=== PATIENT | female | born 1940 | race Caucasian/White ===

== ENCOUNTER → 2020-12-27 | Outpatient (CLI) | payer SELFPAY ==
[~2020-12-27] MED LIST: DOXY100 PO; Prednisone20 MG PO
[2020-12-27 18:49] LABS: BASOPHILS ABSOLUTE AUTO 0.04 K/mm3 (0.00-0.23); BASOPHILS PERCENT AUTO 1 % (0-2); EOSINOPHILS ABSOLUTE AUTO 0.24 K/mm3 (0.00-0.68); EOSINOPHILS PERCENT AUTO 3 % (0-6); Hematocrit 33.1 % (33.0-51.0); IMMATURE GRAN ABSOLUTE AUTO 0.08 K/mm3 (0.00-0.10); IMMATURE GRAN PERCENT AUTO 1 % (0-1); LYMPHOCYTES ABSOLUTE AUTO 1.11 K/mm3 (0.84-5.20); LYMPHOCYTES PERCENT AUTO 14 % (21-46); MONOCYTES PERCENT AUTO 4 % (4-13); Mean Corpuscular HGB 27.5 pg (26.0-34.0); Mean Corpuscular HGB Conc 30.2 g/dL (31.5-36.5); Mean Corpuscular Volume 91 fL (80-100); NEUTROPHILS ABSOLUTE AUTO 6.31 K/mm3 (1.96-9.15); NEUTROPHILS PERCENT AUTO 78 % (41-73); Platelet Count 494 K/mm3 (150-400); RDW Coefficient Variation 16.4 % (11.7-14.2); RDW Standard Deviation 54.6 fL (35.1-46.3); Red Blood Cell Count 3.63 M/mm3 (3.80-5.20); White Blood Cell Count 8.08 K/mm3 (4.00-11.30)
[2020-12-27 19:23] LABS: Very Low Density Lipoprot Chol 27 mg/dL (6-32)
[2020-12-27 19:27] LABS: Alanine Aminotransfer (ALT/SGP 11 U/L (12-78); Albumin, Blood 2.2 g/dL (3.4-5.0); Albumin/Globulin Ratio 0.4 (0.8-1.8); Alk Phos 102 U/L (50-136); Anion Gap 1 mmol/L (6-16); Aspartate Aminotrans (AST/SGOT 16 U/L (12-37); Bilirubin, Total 0.2 mg/dL (0.1-1.0); Blood Urea Nitrogen 17 mg/dL (8-24); Bun/Creatinine Ratio 36.7 (12.0-20.0); CHOL/HDL RATIO 3.5; CO2, Blood 35 mmol/L (21-32); Calcium, Blood 8.8 mg/dL (8.5-10.1); Chloride, Blood 101 mmol/L (98-108); Cholesterol 173 mg/dL (50-200); Creatinine, Blood 0.46 mg/dL (0.40-1.00); Glomerular Filtration Rate >60 (60-); Glucose, Blood 88 mg/dL (70-99); HDL Cholesterol 49 mg/dL (>39); Low Density Lipoprotein Chol 97 mg/dL (0-110); Sodium, Blood 137 mmol/L (136-145); Total Protein, Blood 7.2 g/dL (6.4-8.2); Triglycerides 135 mg/dL (30-160)
== END | disposition home or self-care (01) ==
LOC: LAB SHORT 17:20
PROVIDERS: Family Medicine
DX: J44.9 Chronic obstructive pulmonary disease, unspecified (principal); I11.0 Hypertensive heart disease with heart failure; I50.9 Heart failure, unspecified; M06.9 Rheumatoid arthritis, unspecified; K21.9 Gastro-esophageal reflux disease without esophagitis; Z85.71 Personal history of Hodgkin lymphoma; Z85.3 Personal history of malignant neoplasm of breast
CPT/HCPCS: 80053; 80061; 84443; 85025; 86140; 86431

== ENCOUNTER 2020-12-28 14:55 | Emergency (ER) | payer MEDICARE, OTHER ==
[~2020-12-28] VITALS: Ht 162.6 cm; Wt 79.4 kg
[2020-12-28 15:36] LABS: BASOPHILS ABSOLUTE AUTO 0.03 K/mm3 (0.00-0.23); BASOPHILS PERCENT AUTO 0 % (0-2); EOSINOPHILS ABSOLUTE AUTO 0.13 K/mm3 (0.00-0.68); EOSINOPHILS PERCENT AUTO 2 % (0-6); Hematocrit 37.6 % (33.0-51.0); Hemoglobin 11.2 g/dL (11.5-16.0); IMMATURE GRAN ABSOLUTE AUTO 0.07 K/mm3 (0.00-0.10); IMMATURE GRAN PERCENT AUTO 1 % (0-1); LYMPHOCYTES ABSOLUTE AUTO 0.98 K/mm3 (0.84-5.20); LYMPHOCYTES PERCENT AUTO 13 % (21-46); MONOCYTES ABSOLUTE AUTO 0.21 K/mm3 (0.16-1.47); MONOCYTES PERCENT AUTO 3 % (4-13); Mean Corpuscular HGB 27.1 pg (26.0-34.0); Mean Corpuscular HGB Conc 29.8 g/dL (31.5-36.5); Mean Corpuscular Volume 91 fL (80-100); Mean Platelet Volume 9.7 fL (9.1-12.4); NEUTROPHILS ABSOLUTE AUTO 5.98 K/mm3 (1.96-9.15); NEUTROPHILS PERCENT AUTO 81 % (41-73); Platelet Count 517 K/mm3 (150-400); RDW Coefficient Variation 16.6 % (11.7-14.2); RDW Standard Deviation 55.1 fL (35.1-46.3); Red Blood Cell Count 4.14 M/mm3 (3.80-5.20)
[2020-12-28 15:46] LABS: Alanine Aminotransfer (ALT/SGP 14 U/L (12-78); Albumin, Blood 2.3 g/dL (3.4-5.0); Albumin/Globulin Ratio 0.4 (0.8-1.8); Alk Phos 110 U/L (50-136); Anion Gap 2 mmol/L (6-16); Aspartate Aminotrans (AST/SGOT 19 U/L (12-37); Bilirubin, Total 0.4 mg/dL (0.1-1.0); Blood Urea Nitrogen 15 mg/dL (8-24); Bun/Creatinine Ratio 35.5 (12.0-20.0); CO2, Blood 37 mmol/L (21-32); Calcium, Blood 9.3 mg/dL (8.5-10.1); Chloride, Blood 98 mmol/L (98-108); Creatinine, Blood 0.42 mg/dL (0.40-1.00); Globulin, Blood 5.6 g/dL (2.2-4.0); Glomerular Filtration Rate >60 (60-); Glucose, Blood 107 mg/dL (70-99); Sodium, Blood 137 mmol/L (136-145); Total Protein, Blood 7.9 g/dL (6.4-8.2)
[2020-12-28 18:17] LABS: SARS-Cov-2 (COVID-19) PCR, MMC NEGATIVE (NEGATIVE)
[2020-12-28] MEDS ORDERED: DOXY100 PO (19:53)
[2020-12-28] MEDS ORDERED: Prednisone20 MG PO (19:53)
== END 2020-12-28 21:07 | disposition home or self-care (01) ==
LOC: ER 14:55
PROVIDERS: Emergency Medicine
DX: J18.9 Pneumonia, unspecified organism (principal); Z20.822 Contact with and (suspected) exposure to COVID-19; J44.9 Chronic obstructive pulmonary disease, unspecified; I50.9 Heart failure, unspecified; Z88.2 Allergy status to sulfonamides; Z87.891 Personal history of nicotine dependence
CPT/HCPCS: 36415; 71045; 80053; 83880; 84145; 84484; 85025; 93005; 93010; 99285-25; A9270; J7512; U0004

== ENCOUNTER 2021-01-13 16:16 | Inpatient (IN) | payer MEDICARE, OTHER ==
[~2021-01-13] VITALS: Ht 165.1 cm; Wt 75.1 kg
[2021-01-13 17:08] LABS: BASOPHILS PERCENT AUTO 1 % (0-2); EOSINOPHILS ABSOLUTE AUTO 0.17 K/mm3 (0.00-0.68); EOSINOPHILS PERCENT AUTO 2 % (0-6); Hematocrit 41.1 % (33.0-51.0); Hemoglobin 12.2 g/dL (11.5-16.0); IMMATURE GRAN ABSOLUTE AUTO 0.09 K/mm3 (0.00-0.10); IMMATURE GRAN PERCENT AUTO 1 % (0-1); LYMPHOCYTES ABSOLUTE AUTO 2.18 K/mm3 (0.84-5.20); LYMPHOCYTES PERCENT AUTO 19 % (21-46); MONOCYTES ABSOLUTE AUTO 0.48 K/mm3 (0.16-1.47); MONOCYTES PERCENT AUTO 4 % (4-13); Mean Corpuscular HGB 27.4 pg (26.0-34.0); Mean Corpuscular HGB Conc 29.7 g/dL (31.5-36.5); Mean Corpuscular Volume 92 fL (80-100); Mean Platelet Volume 11.1 fL (9.1-12.4); NEUTROPHILS ABSOLUTE AUTO 8.39 K/mm3 (1.96-9.15); NEUTROPHILS PERCENT AUTO 74 % (41-73); Platelet Count 490 K/mm3 (150-400); RDW Coefficient Variation 17.3 % (11.7-14.2); RDW Standard Deviation 58.5 fL (35.1-46.3); Red Blood Cell Count 4.46 M/mm3 (3.80-5.20); White Blood Cell Count 11.41 K/mm3 (4.00-11.30)
[2021-01-13 17:21] LABS: Alanine Aminotransfer (ALT/SGP 18 U/L (12-78); Albumin, Blood 2.8 g/dL (3.4-5.0); Albumin/Globulin Ratio 0.5 (0.8-1.8); Alk Phos 94 U/L (50-136); Anion Gap 4 mmol/L (6-16); Aspartate Aminotrans (AST/SGOT 21 U/L (12-37); Bilirubin, Total 0.3 mg/dL (0.1-1.0); Blood Urea Nitrogen 14 mg/dL (8-24); Bun/Creatinine Ratio 29.4 (12.0-20.0); CO2, Blood 35 mmol/L (21-32); Calcium, Blood 9.3 mg/dL (8.5-10.1); Chloride, Blood 94 mmol/L (98-108); Creatinine, Blood 0.48 mg/dL (0.40-1.00); Globulin, Blood 5.1 g/dL (2.2-4.0); Glomerular Filtration Rate >60 (60-); Glucose, Blood 202 mg/dL (70-99); Potassium, Blood 4.2 mmol/L (3.5-5.5); Sodium, Blood 133 mmol/L (136-145); Total Protein, Blood 7.9 g/dL (6.4-8.2); Troponin I <0.015 ng/mL (0.000-0.040)
[2021-01-13 18:08] LABS: International Normalized Ratio 1.06; Prothrombin Time Results 11.1 Sec (9.7-11.5)
[2021-01-13] MEDS ORDERED: ELIQUIS5 M2 PO (19:24)
[2021-01-13] MEDS ORDERED: FLUT1DIS5 INH (19:25)
[2021-01-13] MEDS ORDERED: LOSA25 PO (19:26)
[2021-01-13] MEDS ORDERED: FURO20 PO (19:26)
[2021-01-13] MEDS ORDERED: DILT60 PO (19:26)
[2021-01-13] MEDS ORDERED: QUET25 PO (19:27)
[2021-01-13] MEDS ORDERED: GABA300 PO (19:27)
[2021-01-13] MEDS ORDERED: MOTRIN IB200 MG PO (19:28)
[2021-01-13] MEDS ORDERED: IPRAT-ALBUT 0.5-3 ML INH (19:28)
[2021-01-13 23:29] LABS: Source, Urine Catheter
[2021-01-13 23:31] LABS: Bilirubin, Urine Neg (Neg); Blood, Urine 4+ (Neg); Glucose Qualitative, Urine Neg (Neg); Ketones, Urine Neg (Neg); Leukocyte Esterase, Urine 2+ (Neg); Nitrite, Urine Neg (Neg); Protein, Urine 1+ (Neg); Urobilinogen, Urine NORM (Normal)
[2021-01-13 23:42] LABS: Appearance, Urine Clear (Clear); Bacteria Few /hpf; Color, Urine Yellow (P-Yellow); Squamous Epithelial Cells Not Seen /hpf (Few); White Blood Cells, Urine 25-50 /hpf (0-5)
--- NOTE | 2021-01-14 00:29 | NUR ---
CALL TO HOSP RE: PT C/O PAIN RELATED TO ARTHRITIS, IS CURRENTLY NPO WAITING FOR SPEECH EVAL DUE TO FAMILY CONCERNS REGARDING POSSIBLE ASPIRATION. ORDERS REC.Brant AYALA RN
[2021-01-14 00:56] LABS: Troponin I 0.027 ng/mL (0.000-0.040)
--- NOTE | 2021-01-14 08:06 | NUR ---
CARE ASSUMPTION THIS RN ASSUMED CARE AT 0700. VSS. TELE AFIB 98. SPO2 >90% ON 4L NC. PATIENT IS ALERT TO SELF. PATIENT IS CONFUSED AND CALLS OUT "HELP ME" WHEN GOING IN TO ASSIST PATIENT PATIENT STATES "I NEED TO GET BACK TO BED" THIS RN INFORMS PATIENT THAT SHE IS IN BED AND ASKS HOW I CAN MAKE HER MORE COMFORTABLE, AND ORIENTATES HER TO THE ROOM AND WHERE SHE IS AT. PATIENT DAUGHTER IS AT BEDSIDE WHO IS POA, AND IS HER CAREGIVER. MD IN TO SEE PATIENT THIS MORNING AND ORDERED A FULL LIQUID DIET UNTIL SPEECH CAN SEE PATIENT. PER DAUGHTER THIS IS THE PATIENTS BASELINE. PATIENT HAS ROSALES IN PLACE DRAINING WITH GRAVITY. PATIENT IS INCONTINENT. PATIENT HAD A PRESSSURE ULCER TO HER RIGHT HEEL, PICTURES IN THE CHART. CALL LIGHT WITHIN REACH, BED IN LOWEST POSITION AND DAUGHTER AT BEDSIDE. WILL CONTINUE TO MONITOR AND PROVIDE CARE.
[2021-01-14 08:53] LABS: BASOPHILS ABSOLUTE AUTO 0.07 K/mm3 (0.00-0.23); BASOPHILS PERCENT AUTO 1 % (0-2); EOSINOPHILS ABSOLUTE AUTO 0.08 K/mm3 (0.00-0.68); EOSINOPHILS PERCENT AUTO 1 % (0-6); Hematocrit 35.4 % (33.0-51.0); Hemoglobin 10.6 g/dL (11.5-16.0); IMMATURE GRAN ABSOLUTE AUTO 0.05 K/mm3 (0.00-0.10); IMMATURE GRAN PERCENT AUTO 1 % (0-1); LYMPHOCYTES ABSOLUTE AUTO 0.45 K/mm3 (0.84-5.20); LYMPHOCYTES PERCENT AUTO 6 % (21-46); MONOCYTES ABSOLUTE AUTO 0.32 K/mm3 (0.16-1.47); MONOCYTES PERCENT AUTO 4 % (4-13); Mean Corpuscular HGB 27.2 pg (26.0-34.0); Mean Corpuscular HGB Conc 29.9 g/dL (31.5-36.5); Mean Corpuscular Volume 91 fL (80-100); Mean Platelet Volume 10.3 fL (9.1-12.4); NEUTROPHILS ABSOLUTE AUTO 6.55 K/mm3 (1.96-9.15); NEUTROPHILS PERCENT AUTO 87 % (41-73); Platelet Count 371 K/mm3 (150-400); RDW Coefficient Variation 17.4 % (11.7-14.2); RDW Standard Deviation 58.4 fL (35.1-46.3); Red Blood Cell Count 3.89 M/mm3 (3.80-5.20); White Blood Cell Count 7.52 K/mm3 (4.00-11.30)
[2021-01-14 09:10] LABS: Alanine Aminotransfer (ALT/SGP 12 U/L (12-78); Albumin, Blood 2.4 g/dL (3.4-5.0); Albumin/Globulin Ratio 0.5 (0.8-1.8); Alk Phos 78 U/L (50-136); Anion Gap 5 mmol/L (6-16); Aspartate Aminotrans (AST/SGOT 21 U/L (12-37); Bilirubin, Total 0.3 mg/dL (0.1-1.0); Blood Urea Nitrogen 15 mg/dL (8-24); CO2, Blood 38 mmol/L (21-32); CPK Creatine Kinase 37 U/L (26-193); Calcium, Blood 8.7 mg/dL (8.5-10.1); Chloride, Blood 95 mmol/L (98-108); Creatinine, Blood 0.42 mg/dL (0.40-1.00); Globulin, Blood 4.5 g/dL (2.2-4.0); Glomerular Filtration Rate >60 (60-); Glucose, Blood 82 mg/dL (70-99); Potassium, Blood 3.4 mmol/L (3.5-5.5); Sodium, Blood 138 mmol/L (136-145); Total Protein, Blood 6.9 g/dL (6.4-8.2); Troponin I <0.015 ng/mL (0.000-0.040)
--- NOTE | 2021-01-14 17:55 | NUR ---
SHIFT SUMMARY PATIENT IS ALERT TO SELF. VSS. SPO2 >90% ON 4L NC. TELE AFIB WITH PVC. PATIENT DAUGHTER IN LAW IS CURRENTLY AT BEDSIDE. DAUGHTER IN LAW LEFT DURING THE AFTERNOON AND PATIENT WOULD CALL OUT FREQUENTLY FOR HELP, FOR THE DAUGHTER IN LAW. PATIENT BECOMES ANXIOUS AT TIMES, BUT WITH REDIRECTION AND ORIENTATION TO WHAT IS GOING ON AND ASKING HER TO TAKE SOME DEEP BREATHS SHE CALMS DOWN. DAUGHTER IN LAW HELPS PROVIDE RELIEVE HER ANXIETY. PATIENT STATES SHE IS AFRAID TO BE ALONE AND MISSES HER DAUGHTER IN LAW WHEN SHE WASN'T HERE. PATIENT NEEDS FREQUENT REMINDING AND ORIENTATING. BED IN LOWEST POSITION AND CALL LIGHT WITHIN REACH. NO ACUTE CHANGES DURING THIS SHIFT. WILL CONTINUE TO MONITOR AND PROVIDE CARE UNTIL HAND OFF WITH NEXT SHIFT.
--- NOTE | 2021-01-14 21:51 | NUR ---
PT CONTINUES TO BE AGITATED, SCREAMING FOR HELP BECAUSE SHE WANTS SOMEONE IN THE ROOM WITH HER AT ALL TIMES. PT SO AGITATED HR UP TO 130'S, HAD 4 BEATS OF VTACH ( MADE AWARE VIA PHONE). CALL PLACED TO NGHIA MASTERSON, WHO STATES SHE WILL COME BACK AND SIT WITH PATIENT. METOPROLOL IV FOR ELEVATED HR, SEE MAR. LUCY RN
--- NOTE | 2021-01-14 22:44 | NUR ---
PT REMAINS AGITATED, DIL AT BEDSIDE AND UNABLE TO PACIFY PT. CALL TO HOSP, ORDERS REC'D, WILL CONTINUE TO MONITOR. TOMA AYALA
--- NOTE | 2021-01-14 23:20 | NUR ---
PT REMAINS AGITATED WITH ELEVATED BP AND HR, DIAPHORETIC FROM RESTLESSNESS IN BED. DIL AT BEDSIDE ASKED "CANT YOU GIVE HER SOMETHING TO KNOCK HER OUT?" EDUCATED FAMILY REGARDING CHEMICAL RESTRAINTS, REPEAT CALL TO PRACTITIONER TO UPDATE HER ON PT CONDITION. ORDERS REC'D. TOMA AYALA
[2021-01-15 05:02] LABS: Anion Gap 0 mmol/L (6-16); Blood Urea Nitrogen 22 mg/dL (8-24); CO2, Blood 41 mmol/L (21-32); Calcium, Blood 9.3 mg/dL (8.5-10.1); Chloride, Blood 94 mmol/L (98-108); Creatinine, Blood 0.43 mg/dL (0.40-1.00); Free Thyroxine 0.89 ng/dL (0.70-1.60); Glomerular Filtration Rate >60 (60-); Glucose, Blood 173 mg/dL (70-99); Potassium, Blood 4.4 mmol/L (3.5-5.5); Sodium, Blood 135 mmol/L (136-145); Thyroid Stimulating Hormone 0.584 uIU/mL (0.360-4.800)
--- NOTE | 2021-01-15 08:00 | NUR ---
ASSUMED CARE OF PATIENT. PT IS RESTING WITH EYES CLOSED, DAUGHTER IN LAW AT BEDSIDE. WILL CONTINUE TO YUN.
--- NOTE | 2021-01-15 09:00 | NUR ---
INITIAL ASSESSMENT: Assumed care of patient, she is resting with her eyes closed, awakens with repositioning. no pain per FlACC scale. HR Irregular, A-fib in the 110-115. LS Coarse on the right, DIM on the left. Biox wnl on baseline 3l oxygen via NC. BT+. Chou cath patent and draining dark yellow urine, urine cultures came back positive-MD aware. PPP. VSS. Patient is too lethargic this am to take PO pills and participate with ST. Bed alarm on for safety. Will continue to monitor.
--- NOTE | 2021-01-15 12:00 | NUR ---
UPDATE: Patient is able to wake up for bed bath and repositioning. Oral care done, pt does not have gag or cough. RT called for NT suctioning, sputum sample sent. MD updated, see new orders.
--- NOTE | 2021-01-15 15:01 | NUR ---
Received call from Primary RN Jennifer and discussed case. Pt more somnolant today, appears weak and frail. Pt resting in bed with her eyes closed. Respirations increased. Pt opens her eyes to loud verbal stimuli but does not respond verbally and quickly appears to go back to sleep. Called and spoke with Pt's son Ramesh and daughter in law Nati. Provided update and therapeutic listening. Ramesh reports family would like to consider hospice in order to manage Pt's pain. Nati reports Pt's RA is significant and struggles with pain control. Educated on hospice philosophy with V/U made by family. Family requests to have Pt evaluated for hospice appropirateness. Palliative Care will F/U with therapeutic visits and assess hospice appropriateness.
--- NOTE | 2021-01-15 15:08 | NUR ---
Late Entry from previous visit note. Family reports Pt is chair bound requiring assistance with transfers. Pt needs assistance with dressing and requires 2 person assistance with bathing. Pt's appetite is poor eating a spoonful of pudding or apples sauce. Pt is incontenent of bowel and bladder and is constantly confused.
--- NOTE | 2021-01-15 16:30 | NUR ---
Update: Patient had chest X-Ray done earlier, results called to Dr. Pavon. Patient is also positive for UTI, see new orders. Patient is more awake, oriented to self, place and daughter in law. Blood pressure high, pt was able to take coreg with a bite of applesauce.
--- NOTE | 2021-01-15 19:25 | NUR ---
Patient started off the shift lethargic, per the noc shift RN pt had not slept in approx 3 nights. Pt was responsive to repositioning and neuro status improved toward the end of the shift. UA positive, abx ordered.CXR shows worsening pneumonia, abx ordered. Daughter in law at the bedside. No other changes this shift, report given to Katey REYES RN.
--- NOTE | 2021-01-15 21:55 | NUR ---
PATIENT BECAME MORE ANXIOUS AND BEGAN DESATTING INTO MID 80'S. ZYPREXA (PO) GIVEN AND UPON RECHECK THE PATIENT WAS ABLE TO SLEEP.
--- NOTE | 2021-01-15 22:28 | NUR ---
ASSUMED CARE OF PT AT 1900. DAUGHTER IN LAW (RICKI) AT BEDSIDE. TO SELF AND RICKI'S RELATIONSHIP TO HER (NOT HER NAME). PATIENT WAS CALMLY LYING IN BED. PT C/O LOW BACK PAIN THAT IS CHRONIC IN NATURE. L PUPIL 3 AND BRISK, R PUPIL 3 BUT VERY SLUGGISH. HAND GRASPS EQUAL BL. MAINTAINING ABOVE 92% ON 3.5L NC (HOME BASELINE OXYGEN) BUT DOES DESAT INTO THE 80'S WITH INCREASE IN ANXIETY WHICH REQUIRES INCREASED O2 UNTIL PATIENT IS CALM AGAIN. DIM UPPER, COARSE LOWER. MOIST/CONGESTED COUGH. AFIB AVG LOW 100'S WITH +1 PULSES BL RADIAL AND PEDAL. UPPER EXTREMITIES TRACE EDEMA, LOWER 2+. ROSALES DRAINING TO GRAVITY (YELLOW URINE).
[2021-01-16 03:48] LABS: Hematocrit 35.6 % (33.0-51.0); Hemoglobin 10.2 g/dL (11.5-16.0); Mean Corpuscular HGB 27.7 pg (26.0-34.0); Mean Corpuscular HGB Conc 28.7 g/dL (31.5-36.5); Platelet Count 399 K/mm3 (150-400); RDW Coefficient Variation 17.7 % (11.7-14.2); Red Blood Cell Count 3.68 M/mm3 (3.80-5.20); White Blood Cell Count 8.47 K/mm3 (4.00-11.30)
[2021-01-16 03:57] LABS: Mean Corpuscular Volume 97 fL (80-100)
--- NOTE | 2021-01-16 04:20 | NUR ---
TELE INFORMED PATIENT HAD 12 BEAT RUN OF VT, THEN RETURNED TO AFIB.
[2021-01-16 04:40] LABS: Anion Gap Unable to Calculate mmol/L (6-16); Blood Urea Nitrogen 39 mg/dL (8-24); Bun/Creatinine Ratio 64.1 (12.0-20.0); CO2, Blood 43 mmol/L (21-32); Chloride, Blood 97 mmol/L (98-108); Creatinine, Blood 0.61 mg/dL (0.40-1.00); Glomerular Filtration Rate >60 (60-); Glucose, Blood 129 mg/dL (70-99); Potassium, Blood 4.1 mmol/L (3.5-5.5); Sodium, Blood 139 mmol/L (136-145)
--- NOTE | 2021-01-16 06:14 | NUR ---
PATIENT SLEPT MOST OF THE NIGHT. SMALL FORMED INCONTINENT BOWEL MOVEMENT. VSS. WILL REPORT TO DAYSHIFT RN.
--- NOTE | 2021-01-16 08:45 | NUR ---
INITIAL ASSESSMENT: Patient is lethargic this am, she is able to tell me her name and part of her date of . She denies pain. HR, Irreg a-fib in the low 100s. VSS. LS coarse with some exp. wheezing noted, biox wnl on 2L via NC. bt+, attends in place. Chou cath patent and draining clear yellow urine. PPP, BLE elevated on pillows. Pt has mepilex to heels. Two small skin tears noted to the top of left hand. Bed alarm on for safety, call light in reach.
--- NOTE | 2021-01-16 11:51 | NUR ---
Pt resting in bed upon arrival. Pt awake and more alert today. Pt is pleasantly confused and appears to mistake this RN for someone she knows. Pt appears excited to see this RN. Offered gentle voice and therapeutic touch. Spoke with Pt's Primary RN Jennifer and discussed case. Reviewed plan of care. Palliative Care will remain available.
--- NOTE | 2021-01-16 12:30 | NUR ---
Update: Patient is more awake and is asking for lunch. Speech therapy attempted to see the patient earlier this morning, but due to lethargy they could not evaluate her. I called Radha in speech therapy, she was able to come and see the patient-she has been upgraded to a puree diet with thins and meds whole in applesauce. Patient was able to eat quite a bit, am meds were given with applesauce. Son at bedside. Will continue to andrew.
--- NOTE | 2021-01-16 18:10 | NUR ---
SUMMARY: PATIENT HAS BEEN MORE AWAKE AND ALERT TODAY. SHE WAS ABLE TO PASS HER SWALLOW EVAL, HER DIET WAS ADVANCED TO PUREE WITH THIN LIQUIDS. SHE WAS ABLE TO TAKE HER MEDS WHOLE WITH APPLESAUCE. VSS. NO ACUTE CHANGES THIS SHIFT. WILL REPORT TO ONCOMING RN.
--- NOTE | 2021-01-17 06:41 | NUR ---
SHIFT SUMMARY PT ORIENTED TO SELF AND FAMILY. MOANS OUT FOR HELP. BELIEVES PEOPLE ARE IN ROOM TALKING TO HER WHEN SHE IS ALONE. REDIRECTABLE WHEN NURSE OR FAMILY PRESENT IN ROOM. ASLEEP MOST OF NIGHT. ON 6L NC MAINTAINING SATS OVER 92%. APPLE SAUCE WITH MEDS. Q2 TURNS AND FREQUENT ORAL CARE. ROSALES IN PLACE DRAINING YELLOW URINE TO GRAVITY. IN BED SLEEPING WITH CALL ALARM AT SIDE
--- NOTE | 2021-01-17 13:59 | NUR ---
Reviewed chart and discussed case with Dr Pavon. Plan for Pt to remain in the hospital for a couple more days. Dr Pavon is agreeable for hospice referral upon D/C home. Called Pt's daughter in law Nati. Provided update and reviewed plan of care. Answered questions and listened to concerns. Nati reports family would still like to have hospice services for Pt upon D/C. Nati reports suspicion for breast cancer and inquires about having breast biopsy during her hospital stay. She reports family has no plan to pursue treatment but for family's own peace of mind would like to know to determine how much time Pt has left in this world. Continued therapeutic listening. Discussed hospice agencies to choose from. Nati reports Pt receives home health services through [email or web address] and would like to continue with this agency. Relayed family's request to Dr Paovn. Spoke with [employer] Kadi and relayed family's choice for hospice agencies upon D/C from hospital. Palliative Care will remain available.
--- NOTE | 2021-01-17 17:27 | NUR ---
RECIEVED REPORT FROM GUEVARA RN, CLAIM TAKER. PATIENT TRANSFERED TO ROOM 352. PATIENT WAS SATURATED WITH URINE ON ARRIVAL, ALTHOUGH HAD A ROSALES CATHETER. I CHANGED OUT THE PATIENTS CATHETER AND PLACED A LARGER ONE. ALSO NOTED PG TO [employer] WAS DIRTY AND NEEDING TO HAVE IT'S DRESSING CHANGED PER FRIDAY PROTOCOL. PATIENT IS SITUATED IN ROOM AT THIS TIME. CALL LIGHT WITHIN REACH.
--- NOTE | 2021-01-17 21:45 | NUR ---
ASSUMED CARE. HAVE BEEN IN THE ROOM SEVERAL TIMES IN ATTEMPT TO GET THE PATIENT AWAKE ENOUGH TO TAKE HER NIGHT MEDS. SHE HAD ZYPREXA EARLIER AND THIS CAUSED SOME SEDATION. SHE OPENS HER EYES TO VEREBAL STIMULI BUT WILL NOT MOVE HER ARMS OR FEET. WAS UNABLE TO GIVE PM MEDS AT THIS TIME. LUNG SOUNDS ARE DIMINISHED FAR I CAN HEAR WITH HER SHALLOW BREATHING. BED ALARM IS ON, WILL CONTINUE TO MONITOR.
--- NOTE | 2021-01-18 05:47 | NUR ---
SHIFT SUMMARY: STEVEN WAS SLEEPING THE START OF THE SHIFT DUE TO BEING GIVEN ZYPREXA. SHE WOULD OPEN HER EYES BUT WOULD NOT REPOND VERBALLY OR PHYSICALLY. NO PM MEDS WERE GIVEN. ONCE AWAKE SHE YELLED OUT FOR HELP CONSTANTLY AND TRYING TO WIGGLE OUT OF BED. ZYPREXA AGAIN WAS GIVEN. LARGE BM NOTED. ROSALES REMAINED PATENT AND DRAINING. CATH REMAINED PATENT AND DRAINING. HYPERTENSIVE RUNNING 140/100-160'S/100'S. AFEBRILE. TACHY IN TH LOW 100'S. IV RUNNING TKO. TELE RUNNINGG AFIB. ON 4LITERS OF O2 WHEN SHE WANTS TO KEEP IT ON. LS DIMINISHED. WILL CONTINUE TO MONITOR. CALL LIGHT IN REACH.
--- NOTE | 2021-01-18 17:25 | NUR ---
Shift Summary AO to self. When asked about place, situation, date/time, patient stated "I don't know" to all. C/O chronic back pain, confirmed with son that patient is often restless and c/o chronic back pain when at home. Pain relieved by tylenol and ibuprofen according to [id number] Nati. Tylenol given for pain of 3/10. Does not use call light appropriately, hollars out for help every 5-10 minutes. When staff enters room to help, patient unable to verbalize what she needs help with. PO fluids and snacks offered. Repositioned frequently. Chou intact and draining clear yellow urine. Appetite is good. Tele: Afib 100. WCTM.
--- NOTE | 2021-01-19 05:16 | NUR ---
SHIFT SUMMARY: IMPROVEMENT IN MENTATION TONIGHT, WAS ABLE TO GET HER NEEDS ACROSS MORE TONIGHT. CALLED OUT ONLY A FEW TIMES SHE DOES NOT REMEMBER TO USE CALL LIGHT. ONCE HER NEEDS WERE MET SHE WAS CALM AND WENT BACK TO SLEEP. DID GIVE ZYPREXA ONCE FOR MILD AGGITATION WHERE SHE FORGOT WHO I WAS AND WHERE SHE WAS AT, THINKING WE WERE THERE TO HARM HER. SMALL BM NOTED. BOBBY REMAINED PATENT BUT DID HAVE SMALL AMOUNT OF URINE TONIGHT COMPARED TO THE OTHER NIGHT. ENCOURAGED FLUID INTAKE TONIGHT, WHICH SHE DID BETTER WITH. BED ALARM ON, CALL LIGHT IN REACH.
--- NOTE | 2021-01-19 17:40 | NUR ---
Shift Summary A/O to self, knows she is in the hospital today but stated reason for admission is a fall. Also stated year is 2019. Intermittent confusion. Medicated for back pain per EMAR with adequate relief. Restless and anxious in room. Hollars out for Alec and Nati (son and daughter in law). Able to redirect when confused. Mumbled speech. Tele d/c, afib. Still requiring 4L O2 via NC. Patient removed NC and O2 sats on RA were high 70's to low 80's, @ 4L, sats > 90%. Chou intact and draining. WCTM.
[2021-01-20 05:34] LABS: BASOPHILS ABSOLUTE AUTO 0.09 K/mm3 (0.00-0.23); BASOPHILS PERCENT AUTO 1 % (0-2); EOSINOPHILS ABSOLUTE AUTO 0.45 K/mm3 (0.00-0.68); EOSINOPHILS PERCENT AUTO 6 % (0-6); Hematocrit 36.5 % (33.0-51.0); Hemoglobin 10.9 g/dL (11.5-16.0); IMMATURE GRAN ABSOLUTE AUTO 0.07 K/mm3 (0.00-0.10); IMMATURE GRAN PERCENT AUTO 1 % (0-1); LYMPHOCYTES ABSOLUTE AUTO 1.08 K/mm3 (0.84-5.20); LYMPHOCYTES PERCENT AUTO 15 % (21-46); MONOCYTES PERCENT AUTO 8 % (4-13); Mean Corpuscular HGB 27.9 pg (26.0-34.0); Mean Corpuscular HGB Conc 29.9 g/dL (31.5-36.5); Mean Corpuscular Volume 94 fL (80-100); Mean Platelet Volume 10.4 fL (9.1-12.4); NEUTROPHILS ABSOLUTE AUTO 4.97 K/mm3 (1.96-9.15); NEUTROPHILS PERCENT AUTO 68 % (41-73); Platelet Count 372 K/mm3 (150-400); RDW Coefficient Variation 18.2 % (11.7-14.2); White Blood Cell Count 7.26 K/mm3 (4.00-11.30)
--- NOTE | 2021-01-20 06:15 | NUR ---
SHIFT SUMMARY PATIENT ALERT AND ORIENTED TO SELF. HAD NO COMPLAINTS OF PAIN. TREATED BY RESPIRATORY THERAPIST FOR SHORTNESS OF BREATH. MEDICATED PER EMAR FOR AGITATION. BED IN LOWEST POSITION WITH WHEELS LOCKED AND ALARM ON. CALL LIGHT WITHIN REACH. REPORT GIVEN TO ONCOMING RN.
[2021-01-20 06:32] LABS: Albumin, Blood 2.4 g/dL (3.4-5.0); Blood Urea Nitrogen 18 mg/dL (8-24); Bun/Creatinine Ratio 33.5 (12.0-20.0); Calcium, Blood 8.6 mg/dL (8.5-10.1); Chloride, Blood 89 mmol/L (98-108); Creatinine, Blood 0.54 mg/dL (0.40-1.00); Glomerular Filtration Rate >60 (60-); Glucose, Blood 88 mg/dL (70-99); Phosphorus, Blood 3.2 mg/dL (2.5-4.9); Sodium, Blood 140 mmol/L (136-145)
[2021-01-20 06:38] LABS: Anion Gap Unable to Calculate mmol/L (6-16)
[2021-01-20 06:39] LABS: CO2, Blood >45 mmol/L (21-32)
[2021-01-20 10:31] LABS: Magnesium, Blood 1.6 mg/dL (1.6-2.4); Thyroid Stimulating Hormone 1.48 uIU/mL (0.360-4.800)
--- NOTE | 2021-01-20 17:41 | NUR ---
Shift Summary A/Ox2 to self and year. Patient knows she is also in the hospital today. States reason for admission is "I got hurt". Still keeps hollaring for Alec and Nati. Easily reoriented, poor short term memory. Labs showed acidosis with CO2 > 45. Dr. Lares notified and orders where changed. Titrated patient to 2L, O2 > 90%. Patient sometimes take NC off and sats drop to 80-85%. Currently on 2L NC. States pain is miminal today, no pain meds given this shift. Needs assist with PO intake. Patient will take long and big gulps of nectar thick fluids and aspirate/cough if patient feeds self. Chou intact and draining. WCTM.
--- NOTE | 2021-01-21 05:21 | NUR ---
SHIFT SUMMARY PATIENT ALERT AND ORIENTED TO SELF. MEDICATED PER EMAR FOR PAIN AND AGITATION. NO ACUTE ISSUES NOTED OVERNIGHT. CALL LIGHT WITHIN REACH. REPORT GIVEN TO ONCOMING RN.
[2021-01-21 05:29] LABS: BASOPHILS ABSOLUTE AUTO 0.06 K/mm3 (0.00-0.23); BASOPHILS PERCENT AUTO 1 % (0-2); EOSINOPHILS ABSOLUTE AUTO 0.36 K/mm3 (0.00-0.68); EOSINOPHILS PERCENT AUTO 5 % (0-6); Hematocrit 36.6 % (33.0-51.0); Hemoglobin 11.1 g/dL (11.5-16.0); IMMATURE GRAN ABSOLUTE AUTO 0.09 K/mm3 (0.00-0.10); IMMATURE GRAN PERCENT AUTO 1 % (0-1); LYMPHOCYTES ABSOLUTE AUTO 1.02 K/mm3 (0.84-5.20); LYMPHOCYTES PERCENT AUTO 13 % (21-46); MONOCYTES ABSOLUTE AUTO 0.62 K/mm3 (0.16-1.47); MONOCYTES PERCENT AUTO 8 % (4-13); Mean Corpuscular HGB 28.3 pg (26.0-34.0); Mean Corpuscular HGB Conc 30.3 g/dL (31.5-36.5); Mean Corpuscular Volume 93 fL (80-100); Mean Platelet Volume 10.6 fL (9.1-12.4); NEUTROPHILS ABSOLUTE AUTO 5.45 K/mm3 (1.96-9.15); NEUTROPHILS PERCENT AUTO 72 % (41-73); Platelet Count 301 K/mm3 (150-400); RDW Coefficient Variation 18.3 % (11.7-14.2); RDW Standard Deviation 62.4 fL (35.1-46.3); Red Blood Cell Count 3.92 M/mm3 (3.80-5.20)
[2021-01-21 06:23] LABS: Albumin, Blood 2.5 g/dL (3.4-5.0); Blood Urea Nitrogen 13 mg/dL (8-24); Bun/Creatinine Ratio 24.5 (12.0-20.0); Calcium, Blood 8.9 mg/dL (8.5-10.1); Chloride, Blood 90 mmol/L (98-108); Creatinine, Blood 0.53 mg/dL (0.40-1.00); Glomerular Filtration Rate >60 (60-); Glucose, Blood 100 mg/dL (70-99); Phosphorus, Blood 3.7 mg/dL (2.5-4.9); Sodium, Blood 140 mmol/L (136-145)
[2021-01-21 06:29] LABS: Anion Gap Unable to Calculate mmol/L (6-16); CO2, Blood >45 mmol/L (21-32)
[2021-01-21 09:08] LABS: PCO2 Arterial 68.3 mmHg (35-45); PO2 Arterial 58.2 mmHg (80-100); pH Blood Arterial 7.52 (7.35-7.45)
--- NOTE | 2021-01-21 18:58 | NUR ---
PT ALERT AND ORIENTED TO SELF.FLOLEY INTACT,DRAINAGE TO GRAVITY.PT HCO3 IS HIGH,DR GUEVARA,NO ORDERS GIVEN.PT IN BED,FAMILY AT BEDSIDE.PT CONFUSED.BED ALARM,CALL LIGHT IN REACH WILL CONTINUE TO MONITOR.
--- NOTE | 2021-01-22 05:38 | NUR ---
SHIFT SUMMARY PATIENT ALERT AND ORIENTED TO SELF. MEDICATED PER EMAR FOR PAIN. O2 INCREASED TO 4 LITERS VIA NASAL CANULA DUE TO DESATURATION AFTER SHE TOOK HER OXYGEN OFF. BED IN LOWEST POSITION WITH WHEELS ANNA AND ALARM ON. CALL LIGHT WITHIN REACH. REPORT GIVEN TO ONCOMING RN.
--- NOTE | 2021-01-22 19:11 | NUR ---
PT HAS NO ACUTE EVENTS T/O THIS SHIFT,PT AAO TO SELF,PT DENIES PAIN,N/V,SOB,PT ON 1L NC SATS IN 90S,ROSALES INTACT.BED IN LOW POSITION,CALL LIGHT IN REACH,WILL CONTINUE TO MONITOR.
--- NOTE | 2021-01-23 04:31 | NUR ---
SHIFT ASSESSMENT PT WAS ON 2L O2 NC BUT HAD LOWER BIOX IN 80'S. NOW ON 3L OF O2 NC AND WAS 97% PT HAS BEEN CALLING OUT AND "SEEING RATS" IN HER ROOM. MEDICATED WITH ZYPREXA PER EMAR. PT REDIRECTED SEVERAL TIMES. PT IS CONFUSED BUT PLEASANT. CATHETER IN PLACE. CALL LIGHT WITHIN REACH AND WILL CONTINUE TO MONITOR.
[2021-01-23] MEDS ORDERED: ACET500 PO (10:24)
[2021-01-23] MEDS ORDERED: CARV6.25 PO (10:24)
[2021-01-23] MEDS ORDERED: BUSP5 PO (10:24)
[2021-01-23] MEDS ORDERED: FAMO40 PO (10:25)
[2021-01-23] MEDS ORDERED: NITR.4SL SL (10:25)
[2021-01-23] MEDS ORDERED: LEVFLO500 PO (10:25)
[2021-01-23] MEDS ORDERED: OLAN5A MM (10:26)
[2021-01-23] MEDS ORDERED: VISBIOME 112.51 EACH PO (10:26)
--- NOTE | 2021-01-23 11:12 | NUR ---
PT DISCHAGE HOME WITH BOBBY BRISCOE REMAINS DRAINAGE TO GRAVITY.PT ASSESSMENT REMAINS UNCHANGED,PT HAS NO ACUTE EVENTS T/O SHIFT.PT D/C WITH ALL BELONGING.
== END 2021-01-23 10:41 | disposition hospice, home (50) | DRG 177 ==
LOC: ER 16:16 → PCU 18:47 → MEDS 01-17 16:32
PROVIDERS: Emergency Medicine; Internal Medicine; ADMIT Internal Medicine
PROC: 5A09357 Assistance with Respiratory Ventilation, Less than 24 Consecutive Hours, Continuous Positive Airway Pressure (ICD-10-PCS; principal; 2021-01-13)
DX: J69.0 Pneumonitis due to inhalation of food and vomit (principal); J96.21 Acute and chronic respiratory failure with hypoxia; I50.33 Acute on chronic diastolic (congestive) heart failure; G92.8 Other toxic encephalopathy; N39.0 Urinary tract infection, site not specified; Z66 Do not resuscitate; J44.0 Chronic obstructive pulmonary disease with (acute) lower respiratory infection; B96.5 Pseudomonas (aeruginosa) (mallei) (pseudomallei) as the cause of diseases classified elsewhere; J18.9 Pneumonia, unspecified organism; I48.91 Unspecified atrial fibrillation; R62.7 Adult failure to thrive; E87.6 Hypokalemia; Z68.28 Body mass index [BMI] 28.0-28.9, adult; Z86.16 Personal history of COVID-19; Z28.21 Immunization not carried out because of patient refusal; I44.7 Left bundle-branch block, unspecified; B96.1 Klebsiella pneumoniae [K. pneumoniae] as the cause of diseases classified elsewhere; I11.0 Hypertensive heart disease with heart failure; F03.90 Unspecified dementia, unspecified severity, without behavioral disturbance, psychotic disturbance, mood disturbance, and anxiety; M06.9 Rheumatoid arthritis, unspecified; Z88.2 Allergy status to sulfonamides; Z85.3 Personal history of malignant neoplasm of breast
CPT/HCPCS: 31720; 36415; 36600; 51702; 71045; 80048; 80053; 80069; 81001; 82550; 82803; 83036; 83735; 83880; 84100; 84439; 84443; 84484; 85025; 85027; 85610; 85730; 87070; 87077; 87086; 87186; 87205; 92526; 92610; 93005; 93010; 93306; 94640; 94660; 94664; 94760; 94762; 96374; 96375; 98960; 99285-25; A9270; C1751; J0360; J0456; J0696; J1650; J1940; J1956; J2060; J2270; J3480; J7050